=== PATIENT | female | born 1980 | race Caucasian/White ===

== ENCOUNTER 2017-07-02 08:56 | Emergency (ER) | payer MEDICAID ==
[~2017-07-02] VITALS: Ht 157.5 cm; Wt 61.2 kg
[2017-07-02 09:03] VITALS: BP 110/61
--- NOTE | 2017-07-02 09:07 | NUR ---
PATIENT AMBULATED TO ER BED 12
--- NOTE | 2017-07-02 09:11 | NUR ---
PATIENT PRESENTS TO ED WITH c/o no heart tone observe in ultrasound completed yesterday during her [employer] visit . PT STATES . DENIES N/V/D; SKIN IS PINK/WARM/DRY; AAOX4 WITH EVEN AND STEADY GAIT; LUNGS CLEAR BL; HR EVEN AND REGULAR; PT DENIES ANY FEVER, CP, SOB, OR COUGH AT THIS TIME; PATIENT STATES PAIN OF 0/10 AT THIS TIME; VSS; PATIENT POSITIONED FOR COMFORT; HOB ELEVATED; BEDRAILS UP X2; BED DOWN. ER MD MADE AWARE OF PT STATUS.
--- NOTE | 2017-07-02 10:33 | NUR ---
Patient discharged with v/s stable. Written and verbal after care instructions given and explained. Patient verbalized understanding. Ambulatory with steady gait. All questions addressed prior to discharge. Advised to follow up with PMD.
[2017-07-02 10:37] VITALS: BP 103/62
== END 2017-07-02 10:33 | disposition home or self-care (01) ==
LOC: MED 08:56
DX: O09.522 Supervision of elderly multigravida, second trimester (principal); Z3A.00 Weeks of gestation of pregnancy not specified
CPT/HCPCS: 76815; 81002; 99284; Q0092